=== PATIENT | female | born 1965 ===

== ENCOUNTER 2019-10-18 10:48 | Day surgery (SDC) | payer BC ==
[~2019-10-18] VITALS: Ht 180.3 cm; Wt 187.2 kg
[2019-10-18] MEDS ORDERED: METF500 PO (11:26)
[2019-10-18] MEDS ORDERED: Synthroid200 MCG PO (11:26)
[2019-10-18] MEDS ORDERED: PANT40 PO (12:07)
--- NOTE | 2019-10-18 13:02 | NUR ---
10/18/19 1302 Leigh Jordan MAC CASE WITH DR. NEGRO SEE ANETHESIA RECORD FRO CARE
== END 2019-10-18 14:52 | disposition home or self-care (01) ==
LOC: ORSCMMR 10:48 → ORD 12:30 → ORSCMMR 14:52
PROVIDERS: Internal Medicine Gastroenterology
PROC: 0DB68ZX Excision of Stomach, Via Natural or Artificial Opening Endoscopic, Diagnostic (ICD-10-PCS; principal; 2019-10-18 12:30)
PROC: 0DBN8ZX Excision of Sigmoid Colon, Via Natural or Artificial Opening Endoscopic, Diagnostic (ICD-10-PCS; principal; 2019-10-18 12:30)
PROC: 0DBK8ZX Excision of Ascending Colon, Via Natural or Artificial Opening Endoscopic, Diagnostic (ICD-10-PCS; principal; 2019-10-18 12:30)
DX: R19.5 Other fecal abnormalities (principal); R10.13 Epigastric pain; D12.2 Benign neoplasm of ascending colon; K63.5 Polyp of colon; E11.9 Type 2 diabetes mellitus without complications; G47.33 Obstructive sleep apnea (adult) (pediatric); E66.01 Morbid (severe) obesity due to excess calories; Z68.43 Body mass index [BMI] 50.0-59.9, adult; E03.9 Hypothyroidism, unspecified; E28.2 Polycystic ovarian syndrome; Z79.899 Other long term (current) drug therapy; Z79.01 Long term (current) use of anticoagulants
CPT/HCPCS: 82947; 88305; 88342; J2704; J7120

== ENCOUNTER → 2023-03-15 | Outpatient (CLI) | payer BC ==
[~2023-03-15] MED LIST: METF500 PO; PANT40 PO; Synthroid200 MCG PO
[2023-03-17 15:11] LABS: HPV 16 Negative (Negative); HPV 18 Negative (Negative); HPV OTHER HR TYPES Negative (Negative)
== END ==
LOC: LAB 17:23 → LAB SHORT 17:23
PROVIDERS: Family Medicine
DX: R87.615 Unsatisfactory cytologic smear of cervix (principal)
CPT/HCPCS: 87624; G0145

== ENCOUNTER → 2023-03-15 | Outpatient (CLI) | payer SELFPAY | LOC: LAB SHORT 08:15 → PLD 08:15 | DX: C54.1 Malignant neoplasm of endometrium (principal) | CPT/HCPCS: 88305 ==